=== PATIENT | female | born 1980 | race Caucasian/White ===

== ENCOUNTER 2019-03-19 23:00 | Emergency (ER) | payer SELFPAY ==
[~2019-03-19] VITALS: Wt 54.5 kg
[~2019-03-19 23:00] MED LIST: AMOXICILLIN 50500 MG PO; GENTAMICIN EYE D5 ML OU; LOESTRIN1.5/30 21DAY PO; LORTAB 5/500 501 TAB PO; MOTRIN 600600 MG/TAB PO; NO HOME MEDICATIONS; NORCO 325 MG-51 TAB PO; PERCOCET 325 MG1 TA2 PO; PRENATAL VITAMI1 TA5 PO; VENTOLIN0.09 MG IH; ZOLOFT 50MG50 MG PO
[2019-03-19 23:14] VITALS: TEMP 98.6
[2019-03-20 00:07] VITALS: BP 104/67
[2019-03-20 01:45] VITALS: PULSE 109
== END 2019-03-20 01:45 | disposition left against medical advice (07) ==
LOC: COL.ER 23:00
DX: N93.9 Abnormal uterine and vaginal bleeding, unspecified (principal); F17.210 Nicotine dependence, cigarettes, uncomplicated

== ENCOUNTER 2021-07-14 13:24 | Emergency (ER) | payer SELFPAY ==
[~2021-07-14] VITALS: Ht 162.6 cm; Wt 54.5 kg
[2021-07-14 13:42] VITALS: BP 108/66; PULSE 96; TEMP 98.1
== END 2021-07-14 14:18 | disposition left against medical advice (07) ==
LOC: COL.ER 13:24
DX: R10.12 Left upper quadrant pain (principal); G35 Multiple sclerosis